=== PATIENT | male | born 1995 | race Caucasian/White ===

== ENCOUNTER 2017-07-19 12:15 | Emergency (ER) | payer OTHER ==
[~2017-07-19] VITALS: Ht 195.6 cm; Wt 87.5 kg
[2017-07-19 12:26] VITALS: BP 134/73
== END 2017-07-19 15:45 | disposition home or self-care (01) ==
LOC: ED 12:15
DX: A08.4 Viral intestinal infection, unspecified (principal)
CPT/HCPCS: Q0162